=== PATIENT | female | born 1955 | race Caucasian/White ===

== ENCOUNTER 2019-02-24 10:30 | Day surgery (SDC) | payer BC ==
[~2019-02-24] VITALS: Ht 152.4 cm; Wt 74.1 kg
[~2019-02-24 10:30] MED LIST: CA+; METFORMIN
[2019-02-24 13:14] VITALS: BP 122/75; PULSE 68; RESP 16
--- NOTE | 2019-02-24 13:51 | PREAC ---
Date/Time of Note Date/Time of Note DATE: 02/24/19 TIME: 13:50 Anesthesia Eval and Record Evaluation Time Pre-Procedure Interview DATE: 02/24/19 TIME: 13:50 Age 63 Sex female NPO: 8 hrs Preoperative diagnosis Colon screening Planned procedure Colonoscopy Past Medical History Past Medical History: Includes Cardio: HTN, Dyslipidemia Endo: Diabetes Musculoskeletal: Osteoarthritis GI: Morbid obesity Surgery & Anesthesia Issues No known issue Meds Anticoagulation: No Beta Saira within 24 hr: No Reason Beta Saira not given: Pt. not on B-Saira Reported Medications [Ca+] No Conflict Check 02/24/19 [Metformin] No Conflict Check 02/24/19 Meds reviewed: Yes Allergies Coded Allergies: No Known Allergy (Unverified , 02/24/19) Allergies Reviewed: Yes Labs/Studies Labs Reviewed: Reviewed by anesthesiologist test: N/A Studies: ECG Pre-procedure Exam Last vitals Vital Signs Date Temp Pulse Resp B/P (MAP) Pulse Ox O2 O2 Flow FiO2 Time Delivery Rate 02/24/19 97.7 68 16 122/75 96 Room Air 13:14 (91) Airway: Adequate mouth opening, Adequate thyromental dist Mallampati: Mallampati II Teeth: Normal Lung: Normal Heart: Normal ASA Physical Status ASA physical status: 2 Emergency: None Planned Anesthetic General/MAC: MAC Planned Pain Management Parenteral pain med Pre-operative Attestations Prior to commencing anesthesia and surgery, the patient was re-evaluated, there was verification of: *The patient's identity *The results of appropriate recent lab work and preoperative vital signs *The above evaluation not changing prior to induction *Anesthetic plan, risk benefits, alternative and complications discussed with patient/family; questions answered; patient/family understands, accepts and wishes to proceed. KAYLENE HAYWARD MD Feb 24, 2019 13:51
[2019-02-24] MEDS ORDERED: PROPOFOL 60 ML ONE (13:53)
[2019-02-24] MEDS ORDERED: LIDOCAINE 2% (SDV) 5 ML INJ ONE (13:53)
--- NOTE | 2019-02-24 15:02 | PAC ---
Date/Time of Note Date/Time of Note DATE: 02/24/19 TIME: 15:01 Post-Anesthesia Notes Post-Anesthesia Note Last documented vital signs Vital Signs Date Temp Pulse Resp B/P (MAP) Pulse Ox O2 O2 Flow FiO2 Time Delivery Rate 02/24/19 97.7 68 16 122/75 96 Room Air 13:14 (91) Activity: WNL Respiratory function: WNL Cardiovascular function: WNL Mental status: Baseline Pain reasonably controlled: Yes Hydration appropriate: Yes Nausea/Vomiting absent: Yes Comments BP:105/56, P:78, Spo2:100%, T:98,8 KAYLENE HAYWARD MD Feb 24, 2019 15:02
[2019-02-24 15:34] VITALS: BP 90/57; RESP 16
== END 2019-02-24 16:01 | disposition home or self-care (01) ==
LOC: GIL 10:30
PROVIDERS: ATTEND Internal Medicine Gastroenterology
DX: Z12.11 Encounter for screening for malignant neoplasm of colon (principal); K57.30 Diverticulosis of large intestine without perforation or abscess without bleeding; D12.5 Benign neoplasm of sigmoid colon; D12.2 Benign neoplasm of ascending colon; D12.3 Benign neoplasm of transverse colon; D12.8 Benign neoplasm of rectum; E11.9 Type 2 diabetes mellitus without complications; I10 Essential (primary) hypertension; E78.5 Hyperlipidemia, unspecified
CPT/HCPCS: 45380; 82962; 88305; Z7610